=== PATIENT | male | born 1980 | race Caucasian/White ===

== ENCOUNTER 2016-04-22 14:42 | Emergency (ER) | payer OTHER ==
[2016-04-22 15:18] VITALS: BP 114/70; TEMP 99.8
[2016-04-22 15:58] VITALS: RESP 18
[2016-04-22] MEDS ORDERED: IBUPROFEN 600 MG TAB PO STA (16:03)
[2016-04-22] MEDS ORDERED: IPRATROPIUM 0.5 MG/2.5 ML NEBU INHALATION STA (16:03)
[2016-04-22] MEDS ORDERED: ALBUTEROL NEBULIZED 2.5 MG/3 ML INHALATION STA (16:03)
--- NOTE | 2016-04-22 16:07 | ED ---
URI HPI - General Chief Complaint: Upper Respiratory Infection Stated Complaint: Diarrhea Time Seen by Provider: 04/22/16 15:55 Source: patient, RN notes reviewed Mode of arrival: ambulatory Limitations: no limitations - History of Present Illness Initial Comments: 34-year-old male presents to the emergency department with a chief complaint of cough cold like symptoms. Patient admits to a history of COPD. Patient states he's had a cough and wheezing for the past 23 days. Patient does admit to low- grade fever. Patient states that he has not been smoking for about 2 days now. Patient states he doesn't have any sputum production. Patient states inhalers at home are not helping. Patient states that he was concerned due to the continued cough and body aches he thought that he should be evaluated. Patient states his daughter is sick with similar like symptoms. Patient denies any recent chest pain, back pain, abdominal pain, nausea vomiting, numbness or tingling, dysuria or hematuria, constipation or diarrhea, headaches or visual changes, or any other current symptoms. - Related Data Home Medications Medication Instructions Recorded Confirmed Albuterol Inhaler [Ventolin 2 puff INHALATION RT-Q6H PRN 03/12/15 04/22/16 Inhaler] Cetirizine HCl [Zyrtec] 10 mg PO DAILY 03/12/15 04/22/16 Sertraline HCl [Sertraline HCl] 100 mg PO DAILY 12/18/15 04/22/16 Previous Rx's Medication Instructions Recorded HYDROcodone/APAP 5-325MG [[place] 1 tab PO Q6HR PRN #15 tab 02/17/16 5-325] Albuterol Inhaler [Ventolin Hfa 1 - 2 puff INHALATION Q4-6H PRN #1 04/22/16 Inhaler] inhaler Azithromycin [Zithromax] 250 mg PO DIRECTED #6 tab 04/22/16 predniSONE 50 mg PO DAILY #5 tab 04/22/16 Allergies Allergy/AdvReac Type Severity Reaction Status Date / Time cyclobenzaprine HCl Allergy SEIZURE Verified 04/22/16 15:19 [From Flexeril] Review of Systems ROS Statement: Those systems with pertinent positive or pertinent negative responses have been documented in the HPI. ROS Other: All systems not noted in ROS Statement are negative. Past Medical History Past Medical History: COPD, Musculoskeletal Disorder Additional Past Medical History / Comment(s): BACK PAIN WITH VERVE DAMAGE, SOMETIMES UNABLE TO WALK., PROBLEMS WITH LEFT WRIST AND LEFT SHOULDER "DISCONNECTS" AT TIMES., ENVIRONMENTAL ALLERGIES, HEMORRHOIDS., HAVING BLOOD WITH EVERY BOWEL MOVEMENT. , NIGHTMARES. History of Any Multi-Drug Resistant Organisms: None Reported Additional Past Surgical History / Comment(s): LEFT TESTICLE SURGERY. Past Anesthesia/Blood Transfusion Reactions: No Reported Reaction, Motion Sickness Past Psychological History: ADD/ADHD, Bipolar, Depression Smoking Status: Heavy tobacco smoker Past Alcohol Use History: None Reported Additional Past Alcohol Use History / Comment(s): SMOKES 1 PPD. STARTED SMOKING AGE 10. Past Drug Use History: None Reported - Past Family History Mother Family Medical History: No Reported History General Exam - General Exam Comments Initial Comments: General exam: Alert, active, comfortable in no apparent distress Head: Normocephalic Eyes: Normal reaction of pupils, equal size, normal range of extraocular motion Ears: normal external ear canals, pink tympanic membranes with normal cone of light Nose: clear with pink turbinates Throat: no erythema or exudates with normal sized tonsils Neck: no masses, no nuchal rigidity Chest: no chest wall deformity Lungs: equal air entry with no crackles, patient does have diffuse wheeze CVS: S1 and S2 normal with no audible mumurs, regular rhythm Abdomen: no hepatosplenomegaly, normal bowel sounds, no guarding or rigidity Spine: no scoliosis or deformity Skin: no rashes Neurological: No focal deficits, tone is normal in all 4 extremities Limitations: no limitations Course Vital Signs 04/22/16 04/22/16 04/22/16 15:16 15:56 16:30 Temperature 99.8 F H Pulse Rate 89 92 Respiratory 20 18 Rate Blood Pressure 114/70 O2 Sat by Pulse 98 Oximetry 04/22/16 16:50 Temperature Pulse Rate 88 Respiratory Rate Blood Pressure O2 Sat by Pulse Oximetry Medical Decision Making - Medical Decision Making 35-year-old male presents to emergency Department chief complaint of cough and shortness of breath. Patient does have a history of COPD and is still currently smoking. At this time patient's chest x-ray and influenza are negative for acute process. Sensation appears to be suffering from a bronchitis. This and will start him on steroids and azithromycin due to his COPD history and history of smoking. We discussed continuing the inhalers. We discussed return comparison follow-up. Patient stated that he understood and all his questions have been answered. He will be discharged. - Lab Data Lab Results 04/22/16 Range/Units 16:20 Influenza Type A RNA Not Detected (Not Detectd) Influenza Type B (PCR) Not Detected (Not Detectd) - Radiology Data Radiology results: report reviewed, image reviewed Disposition Clinical Impression: Acute bronchitis, COPD exacerbation Disposition: HOME SELF-CARE Condition: Stable Instructions: COPD (Chronic Obstructive Pulmonary Disease) (ED), Acute Bronchitis (ED) Additional Instructions: Please use medication as discussed. Please follow up with family doctor if symptoms have not improved over the next two days. Please return to the emergency room if your symptoms increase or worsen or for any other concerns. Prescriptions: Albuterol Inhaler [Ventolin Hfa Inhaler] 1 - 2 puff INHALATION Q4-6H PRN #1 inhaler PRN Reason: Cough Azithromycin [Zithromax] 250 mg PO DIRECTED #6 tab predniSONE 50 mg PO DAILY #5 tab Referrals: Ryan East MD [Primary Care Provider] - 1-2 days Time of Disposition: 17:30
[2016-04-22 16:51] VITALS: PULSE 88
--- NOTE | 2016-04-22 17:05 | XR ---
EXAMINATION TYPE: XR chest 2V DATE OF EXAM: 04/22/2016 4:58 PM COMPARISON: 02/29/2016 INDICATION: Cough TECHNIQUE: Frontal and lateral views of the chest are obtained. FINDINGS: The heart size is normal. The pulmonary vasculature is normal. The lungs are clear. IMPRESSION: 1. No acute pulmonary process.
== END 2016-04-22 17:10 | disposition home or self-care (01) ==
LOC: EC 14:42
DX: J44.0 Chronic obstructive pulmonary disease with (acute) lower respiratory infection (principal); J20.9 Acute bronchitis, unspecified; J44.1 Chronic obstructive pulmonary disease with (acute) exacerbation; F32.9 Major depressive disorder, single episode, unspecified; Z88.5 Allergy status to narcotic agent; F17.200 Nicotine dependence, unspecified, uncomplicated; Z79.899 Other long term (current) drug therapy
CPT/HCPCS: 71020; 87502; 94640; 99283

== ENCOUNTER 2016-07-02 15:01 | Emergency (ER) | payer OTHER ==
[2016-07-02 15:08] VITALS: BP 116/78; PULSE 80; RESP 18; TEMP 97.7
--- NOTE | 2016-07-02 15:50 | ED ---
General Adult HPI - General Chief complaint: Back Pain/Injury Stated complaint: Back Pain Time Seen by Provider: 07/02/16 15:50 Source: patient, RN notes reviewed Mode of arrival: ambulatory - History of Present Illness Initial comments: This 35-year-old male presents with lower back pain and tailbone pain after a fall 2 days ago. Patient states his dog pulled him causing him to fall backwards onto his tailbone. Patient states he has been taking Motrin 800s but this has not helped the pain. Patient reports that he has had no change in bladder function but reports one episode where he lost control of his bowels since the fall but this has not reoccurred. Patient states this episode of loss of bowels was caused by diarrhea, and patient has had normal bowel movements with good control ever since.Patient denies any numbness or tingling of the saddle area, patient denies any numbness/weakness or tingling of bilateral lower or upper extremities. Patient denies any radicular pain. Patient states he is able to ambulate without difficulty. Patient denies any recent fever, chills, shortness breath, chest pain, abdominal pain, nausea/ vomiting/diarrhea, hematuria, headache, or visual changes, or any other complaints. - Related Data Home Medications Medication Instructions Recorded Confirmed Albuterol Inhaler [Ventolin 2 puff INHALATION RT-Q6H PRN 03/12/15 07/02/16 Inhaler] Cetirizine HCl [Zyrtec] 10 mg PO DAILY 03/12/15 07/02/16 Sertraline HCl [Sertraline HCl] 100 mg PO DAILY 12/18/15 07/02/16 Previous Rx's Medication Instructions Recorded HYDROcodone/APAP 5-325MG [[place] 1 tab PO Q6HR PRN #15 tab 02/17/16 5-325] Albuterol Inhaler [Ventolin Hfa 1 - 2 puff INHALATION Q4-6H PRN #1 04/22/16 Inhaler] inhaler Azithromycin [Zithromax] 250 mg PO DIRECTED #6 tab 04/22/16 predniSONE 50 mg PO DAILY #5 tab 04/22/16 traMADol HCL [Ultram] 50 mg PO Q6HR #12 tab 07/02/16 Allergies Allergy/AdvReac Type Severity Reaction Status Date / Time cyclobenzaprine HCl Allergy SEIZURE Verified 07/02/16 15:08 [From Flexeril] Review of Systems ROS Statement: Those systems with pertinent positive or pertinent negative responses have been documented in the HPI. ROS Other: All systems not noted in ROS Statement are negative. Past Medical History Past Medical History: COPD, Musculoskeletal Disorder Additional Past Medical History / Comment(s): BACK PAIN WITH NERVE DAMAGE, SOMETIMES UNABLE TO WALK., PROBLEMS WITH LEFT WRIST AND LEFT SHOULDER "DISCONNECTS" AT TIMES., ENVIRONMENTAL ALLERGIES, HEMORRHOIDS., HAVING BLOOD WITH EVERY BOWEL MOVEMENT. , NIGHTMARES. History of Any Multi-Drug Resistant Organisms: None Reported Past Surgical History: No Surgical Hx Reported Additional Past Surgical History / Comment(s): LEFT TESTICLE SURGERY. Past Anesthesia/Blood Transfusion Reactions: No Reported Reaction, Motion Sickness Past Psychological History: ADD/ADHD, Bipolar, Depression Smoking Status: Heavy tobacco smoker Past Alcohol Use History: None Reported Additional Past Alcohol Use History / Comment(s): SMOKES 1 PPD. STARTED SMOKING AGE 10. Past Drug Use History: None Reported - Past Family History Mother Family Medical History: No Reported History General Exam - General Exam Comments Initial Comments: General: The patient is awake and alert, in no distress, and does not appear acutely ill. Neck: The neck is supple, there is no tenderness or JVD. Cardiovascular: There is a regular rate and rhythm. No murmur, rub or gallop is appreciated. Respiratory: Lungs are clear to auscultation, respirations are non-labored, breath sounds are equal. No wheezes, stridor, rales, or rhonchi. Musculoskeletal: Patient is tender to palpation over the lumbar spine and sacrum area. There is no erythema, swelling or ecchymosis. Patient has strength 5/5, full range of motion and sensation intact. Posterior tibial pulses 2+ bilaterally, radial pulses 2+ bilaterally. Patient is ambulatory in the EC. Rectal: Normal rectal tone and no saddle anesthesia with palpation. Neurological: A&O x 3. CN II-XII intact, There are no obvious motor or sensory deficits. Coordination appears grossly intact. Speech is normal. Skin: Skin is warm and dry and no rashes or lesions are noted. Psychiatric: Normal mood and affect. Course Vital Signs 07/02/16 15:02 Temperature 97.7 F Pulse Rate 80 Respiratory 18 Rate Blood Pressure 116/78 O2 Sat by Pulse 98 Oximetry Medical Decision Making - Medical Decision Making This is a 35-year-old male who presents with lower back pain 2 days after a fall. On physical exam patient is neurologically intact. Patient has strength 5/5 of bilateral upper and lower extremities. Patient has normal rectal tone and full sensation to the saddle area. Patient has full sensation and full range of motion. Patient is ambulatory in the EC. There is mild tenderness to palpation of the lumbar spine and sacrum. An x-ray of the lumbar spine and an x -ray of the sacrum was done and reviewed showing: #1 lumbar spine: No vertebral compression collapse or malalignment. #2 sacrococcyx: No displaced or angulated tailbone fracture seen. Referred by Dr. Gant. Patient was given Toradol in the EC with some relief of pain. I discussed the results with patient. I discussed Tylenol and Motrin for pain. I discussed tramadol for breakthrough pain. I discussed ice and heating pads to the area. I discussed return parameters. Discussed that patient should follow up with PCP in one to 2 days or return to the EC for any worsening symptoms or for any further concerns. Patient was receptive to this plan and patient will be discharged home. Disposition Clinical Impression: Coccygeal pain, Low back pain Disposition: HOME SELF-CARE Condition: Good Instructions: Acute Low Back Pain (ED) Additional Instructions: Please continue Tylenol and Motrin for pain. Please use tramadol for breakthrough pain. May use ice or heating pads to the area. Please use medication as discussed. Please follow-up with family doctor in the next 2 days of symptoms have not improved. Please return to emergency room if the symptoms increase or worsen or for any other concerns. Prescriptions: traMADol HCL [Ultram] 50 mg PO Q6HR #12 tab Referrals: Ryan East MD [Primary Care Provider] - 1-2 days Time of Disposition: 16:22
[2016-07-02] MEDS ORDERED: ORPHENADRINE 30 MG/ML 2 ML VIAL IM STA (15:54)
[2016-07-02] MEDS ORDERED: KETOROLAC 60 MG/2 ML VIAL IM STA (15:54)
--- NOTE | 2016-07-02 16:11 | XR ---
EXAMINATION TYPE: 3 views lumbar spine. 3 views sacrum and coccyx DATE OF EXAM: 07/02/2016 4:03 PM COMPARISON: Lumbar spine 10/23/2013 HISTORY: 35-year-old male with low back pain and tailbone pain for 2 days after fall FINDINGS: Lumbar spine: 5 lumbar type vertebral bodies. Vertebral body heights are preserved and alignment is maintained. Sug gestion of mild facet degenerative change in the lower lumbar spine. Sacrum and coccyx: SI joints appear symmetric and intact. Small delineation to the arcuate lines of the sacrum. No displ aced or angulated sacral or coccygeal fracture seen. IMPRESSION: 1. Lumbar spine: No vertebral compression collapse or malalignment. 2. Sacrum coccyx: No displaced or angulated tailbone fracture seen.
== END 2016-07-02 16:42 | disposition home or self-care (01) ==
LOC: EC 15:01
DX: M54.5 Low back pain (principal); M53.3 Sacrococcygeal disorders, not elsewhere classified; F31.9 Bipolar disorder, unspecified; F90.9 Attention-deficit hyperactivity disorder, unspecified type; F17.200 Nicotine dependence, unspecified, uncomplicated; Z79.899 Other long term (current) drug therapy; Z88.8 Allergy status to other drugs, medicaments and biological substances; W19.XXXA Unspecified fall, initial encounter
CPT/HCPCS: 72100; 72220; 99283; 96372; J1885

== ENCOUNTER 2016-08-30 14:46 | Emergency (ER) | payer OTHER ==
[2016-08-30 14:52] VITALS: RESP 16
[2016-08-30] MEDS ORDERED: LIDOCAINE VISCOUS 2% 15 ML CUP MUCOUS MEM ONE (16:25)
--- NOTE | 2016-08-30 16:31 | ED ---
ENT HPI - General Chief complaint: ENT Stated complaint: Sore Throat Time Seen by Provider: 08/30/16 16:07 Source: patient, RN notes reviewed Mode of arrival: ambulatory Limitations: no limitations - History of Present Illness Initial comments: Patient is a 36-year-old male presents emergency room for evaluation of throat pain. Patient states throat pain began on Wednesday. patient states been taking [id number] cough medicine and throat lozenges with no relief of symptoms. Patient states he has been gargling with salt water. Patient states he is also experiencing bilateral ear pain. Patient states he has a cough but that is chronic for him since he has COPD. Patient denies worsening cough or shortness of breath. Patient denies fevers or chills. Patient denies headache or dizziness. Patient denies chest pain. Patient denies abdominal pain. Patient denies nausea or vomiting. - Related Data Home Medications Medication Instructions Recorded Confirmed Albuterol Inhaler [Ventolin 2 puff INHALATION RT-Q6H PRN 03/12/15 08/30/16 Inhaler] Cetirizine HCl [Zyrtec] 10 mg PO DAILY 03/12/15 08/30/16 Sertraline HCl [Sertraline HCl] 100 mg PO DAILY 12/18/15 08/30/16 Acetaminophen Tab [Tylenol Tab] 1,000 mg PO Q6HR PRN 08/30/16 08/30/16 Albuterol Nebulized [Ventolin 2.5 mg INHALATION RT-Q6H PRN 08/30/16 08/30/16 Nebulized] Tiotropium [place] [Spiriva] 1 cap INHALATION RT-DAILY 08/30/16 08/30/16 Unknown Inhaler 1 puff INHALATION RT-BID 08/30/16 08/30/16 Previous Rx's Medication Instructions Recorded traMADol HCL [Ultram] 50 mg PO Q6HR #12 tab 07/02/16 Azithromycin [Zithromax Z-pack] 250 mg PO DIRECTED #6 tab 08/30/16 Allergies Allergy/AdvReac Type Severity Reaction Status Date / Time cyclobenzaprine HCl Allergy SEIZURE Verified 08/30/16 16:12 [From Flexeril] Review of Systems ROS Statement: Those systems with pertinent positive or pertinent negative responses have been documented in the HPI. ROS Other: All systems not noted in ROS Statement are negative. Past Medical History Past Medical History: COPD, Musculoskeletal Disorder Additional Past Medical History / Comment(s): BACK PAIN WITH NERVE DAMAGE, SOMETIMES UNABLE TO WALK., PROBLEMS WITH LEFT WRIST AND LEFT SHOULDER "DISCONNECTS" AT TIMES., ENVIRONMENTAL ALLERGIES, HEMORRHOIDS., HAVING BLOOD WITH EVERY BOWEL MOVEMENT. , NIGHTMARES. History of Any Multi-Drug Resistant Organisms: None Reported Past Surgical History: No Surgical Hx Reported Additional Past Surgical History / Comment(s): LEFT TESTICLE SURGERY. Past Anesthesia/Blood Transfusion Reactions: No Reported Reaction, Motion Sickness Past Psychological History: ADD/ADHD, Bipolar, Depression Smoking Status: Heavy tobacco smoker Past Alcohol Use History: None Reported Additional Past Alcohol Use History / Comment(s): SMOKES 1 PPD. STARTED SMOKING AGE 10. Past Drug Use History: None Reported - Past Family History Mother Family Medical History: No Reported History General Exam - General Exam Comments Initial Comments: sitting in exam room in no acute distress. Limitations: no limitations General appearance: alert, in no apparent distress Head exam: Present: atraumatic, normocephalic, normal inspection Eye exam: Present: normal appearance ENT exam: Present: normal exam Expanded Mouth exam: Present: normal external inspection Teeth exam: Present: normal inspection Throat exam: normal inspection, tonsillar erythema Neck exam: Present: normal inspection, tenderness (Tenderness on palpating over bilateral anterior cervical lymph nodes), full ROM. Absent: lymphadenopathy Respiratory exam: Present: normal lung sounds bilaterally. Absent: respiratory distress Cardiovascular Exam: Present: regular rate, normal rhythm, normal heart sounds Extremities exam: Present: normal inspection Back exam: Present: normal inspection Neurological exam: Present: alert, oriented X3, CN II-XII intact, normal gait Psychiatric exam: Present: normal affect, normal mood Skin exam: Present: warm, dry, intact, normal color. Absent: rash Course Vital Signs 08/30/16 08/30/16 14:49 18:07 Temperature 99.5 F 98.4 F Pulse Rate 92 98 Respiratory 16 16 Rate Blood Pressure 127/80 138/87 O2 Sat by Pulse 97 98 Oximetry Medical Decision Making - Medical Decision Making patient is a 36-year-old male presents to the emergency room for evaluation of throat pain. Patient also complaining of pain over bilateral anterior cervical lymph nodes. Rapid strep negative. Heterophile negative. Patient's throat pain most likely viral. Strep culture pending. Advised patient to begin taking antibiotics if he does receive a phone call that the strep culture came back positive. Patient states he understands everything that was discussed with him. Return parameters discussed. Case discussed with Dr. Guadarrama. - Lab Data Result diagrams: 08/30/16 17:00 Lab Results 08/30/16 08/30/16 08/30/16 Range/Units 16:08 17:00 17:00 WBC 14.0 H (3.8-10.6) k/uL RBC 5.03 (4.30-5.90) m/uL Hgb 13.8 (13.0-17.5) gm/dL Hct 42.7 (39.0-53.0) % MCV 84.8 (80.0-100.0) fL MCH 27.5 (25.0-35.0) pg MCHC 32.4 (31.0-37.0) g/dL RDW 13.8 (11.5-15.5) % Plt Count 350 (150-450) k/uL Neutrophils % 63 % Lymphocytes % 26 % Monocytes % 6 % Eosinophils % 2 % Basophils % 1 % Neutrophils # 8.8 H (1.3-7.7) k/uL Lymphocytes # 3.6 (1.0-4.8) k/uL Monocytes # 0.9 (0-1.0) k/uL Eosinophils # 0.3 (0-0.7) k/uL Basophils # 0.1 (0-0.2) k/uL Heterophile Antibody Negative (Negative) Group A Strep Rapid Negative (Negative) Disposition Clinical Impression: Acute viral pharyngitis Disposition: HOME SELF-CARE Condition: Good Instructions: Pharyngitis (ED) Additional Instructions: Tylenol or Motrin as needed for pain. Salt water gargles. Please follow up with primary care provider in 1-2 days. If you receive a call in a few days that strep culture is positive, begin taking antibiotics. If any new symptom arises or symptoms worsen, return to ER as soon as possible. Prescriptions: Azithromycin [Zithromax Z-pack] 250 mg PO DIRECTED #6 tab Referrals: Ryan East MD [Primary Care Provider] - 1-2 days Time of Disposition: 17:57
[2016-08-30 17:16] LABS: Basophils # (A) 0.1 k/uL (0-0.2); Basophils % (A) 1 %; CH 27.5; CHCM 32.6; Eosinophils # (A) 0.3 k/uL (0-0.7); Eosinophils % (A) 2 %; HCT 42.7 % (39.0-53.0); HDW 2.74; HGB 13.8 gm/dL (13.0-17.5); Luc # (Auto) 0.33; Luc % (Auto) 2; Lymphocytes # (A) 3.6 k/uL (1.0-4.8); Lymphocytes % (A) 26 %; MCH 27.5 pg (25.0-35.0); MCHC 32.4 g/dL (31.0-37.0); MCV 84.8 fL (80.0-100.0); Mean Platelet Volume 6.6; Monocytes # (A) 0.9 k/uL (0-1.0); Monocytes % (A) 6 %; Neutrophils # (A) 8.8 k/uL (1.3-7.7); Neutrophils % (A) 63 %; RBC 5.03 m/uL (4.30-5.90); RDW 13.8 % (11.5-15.5); WBC (Perox) 13.83
[2016-08-30 18:08] VITALS: BP 138/87; PULSE 98; TEMP 98.4
== END 2016-08-30 18:08 | disposition home or self-care (01) ==
LOC: EC 14:46
DX: J02.8 Acute pharyngitis due to other specified organisms (principal); H92.03 Otalgia, bilateral; J44.9 Chronic obstructive pulmonary disease, unspecified; F17.200 Nicotine dependence, unspecified, uncomplicated; Z79.899 Other long term (current) drug therapy; Z88.8 Allergy status to other drugs, medicaments and biological substances; Z91.048 Other nonmedicinal substance allergy status
CPT/HCPCS: 36415; 85025; 86308; 87081; 87430; 99283

== ENCOUNTER 2018-04-17 14:59 | Emergency (ER) | payer OTHER ==
[2018-04-17 15:03] VITALS: BP 153/93; PULSE 74; RESP 18; TEMP 98
[2018-04-17] MEDS ORDERED: KETOROLAC 60 MG/2 ML VIAL IM STA (15:36)
--- NOTE | 2018-04-17 15:53 | XR ---
EXAMINATION TYPE: XR hand complete RT DATE OF EXAM: 04/17/2018 COMPARISON: NONE HISTORY: Pain. Third digit injury TECHNIQUE: 3 views FINDINGS: I see no fracture nor dislocation. Metacarpals are intact. Joint spaces appear normal. IMPRESSION: Negative right hand exam.
[2018-04-17] MEDS ORDERED: DIPH,PERTUS(ACELL)TETVAC-LF 0.5 ML VIAL IM ONE (16:12)
[2018-04-17] MEDS ORDERED: ACET/COD 300 MG/30 MG STARTER PACK 6 TAB BTL PO STA (16:32)
--- NOTE | 2018-04-17 16:43 | ED ---
General Adult HPI - General Chief complaint: Extremity Injury, Upper Stated complaint: Back pain Source: patient, RN notes reviewed, old records reviewed Mode of arrival: ambulatory Limitations: no limitations - History of Present Illness Initial comments: 37-year-old male patient with no pertinent past medical history presents to ED with 2 complaints. Patient primary complaint is pain in the interphalangeal joint of his third digit on his right hand. Patient reported that he was at work and is something to pry off a metal cover with a piece of rebar. Patient reports that during this process the rebar bent around his third digit pinching it, causing pain. Patient continues to have a moderate amount of pain on his joint. Patient has a full range of motion of digits and hand. Patient has secondary complaint of chronic lumbar back pain. Patient states that he has experienced this for over 10 years. Patient denies any recent falls or trauma. Patient denies any new onset lower extremity paresthesias, weakness, loss of bowel or bladder control. Pt states that pain does not radiate and is worse with exertion, not painful with rest. Patient states that he currently does not have a PCP. She follows up with this. Patient denies IV drug use, nausea vomiting diarrhea, fever chills, chest pain, shortness of breath. Systemic: Pt denies fatigue, myalgia, fever/chills, rash. Pt denies weakness, night sweats, weight loss. Neuro: Pt denies headache, visual disturbances, syncope or pre-syncope. HEENT: Pt denies ocular discharge or irritation, otalgia, rhinorrhea, pharyngitis or notable lymphadenopathy. Cardiopulmonary: Pt denies chest pain, SOB, heart palpitations, dyspnea on exertion. Abdominal/GI: Pt denies abdominal pain, n/v/d. : Pt denies dysuria, burning w/ urination, frequency/urgency. Denies new onset urinary or bowel incontinence. MSK: Pt denies myalgia, loss of strength or function in extremities. Neuro: Pt denies new onset weakness, paresthesias. - Related Data Home Medications Medication Instructions Recorded Confirmed Albuterol Inhaler [Ventolin 2 puff INHALATION RT-Q6H PRN 03/12/15 08/30/16 Inhaler] Cetirizine HCl [Zyrtec] 10 mg PO DAILY 03/12/15 08/30/16 Sertraline HCl 100 mg PO DAILY 12/18/15 08/30/16 Acetaminophen Tab [Tylenol Tab] 1,000 mg PO Q6HR PRN 08/30/16 08/30/16 Albuterol Nebulized [Ventolin 2.5 mg INHALATION RT-Q6H PRN 08/30/16 08/30/16 Nebulized] Tiotropium Joshua [Spiriva] 1 cap INHALATION RT-DAILY 08/30/16 08/30/16 Unknown Inhaler 1 puff INHALATION RT-BID 08/30/16 08/30/16 Previous Rx's Medication Instructions Recorded traMADol HCL [Ultram] 50 mg PO Q6HR #12 tab 07/02/16 Azithromycin [Zithromax Z-pack] 250 mg PO DIRECTED #6 tab 08/30/16 Allergies Allergy/AdvReac Type Severity Reaction Status Date / Time cyclobenzaprine HCl Allergy SEIZURE Verified 04/17/18 15:03 [From Flexeril] Review of Systems ROS Statement: Those systems with pertinent positive or pertinent negative responses have been documented in the HPI. ROS Other: All systems not noted in ROS Statement are negative. Past Medical History Past Medical History: COPD, Musculoskeletal Disorder Additional Past Medical History / Comment(s): BACK PAIN WITH NERVE DAMAGE, SOMETIMES UNABLE TO WALK., PROBLEMS WITH LEFT WRIST AND LEFT SHOULDER "DISCONNECTS" AT TIMES., ENVIRONMENTAL ALLERGIES, HEMORRHOIDS., HAVING BLOOD WITH EVERY BOWEL MOVEMENT. , NIGHTMARES. History of Any Multi-Drug Resistant Organisms: None Reported Past Surgical History: No Surgical Hx Reported Additional Past Surgical History / Comment(s): LEFT TESTICLE SURGERY. Varicose vein surgery Past Anesthesia/Blood Transfusion Reactions: No Reported Reaction, Motion Sickness Past Psychological History: ADD/ADHD, Bipolar, Depression Smoking Status: Heavy tobacco smoker Past Alcohol Use History: Occasional Past Drug Use History: None Reported - Past Family History Mother Family Medical History: No Reported History General Exam - General Exam Comments Initial Comments: Constitutional: NAD, AOX3, Pt has pleasant affect. HEENT: NC/AT, trachea midline, neck supple, no lymphadenopathy. Posterior pharynx non erythematous, without exudates. External ears appear normal, without discharge. Mucous membranes moist. Eyes PERRLA, EOM intact. There is no scleral icterus. No pallor noted. Cardiopulmonary: RRR, no murmurs, rubs or gallops, no JVD noted. Lungs CTAB in anterior and posterior rose. No peripheral edema. Abdominal exam: Abdomen soft and non-distended. Abdomen non-tender to palpation in all 4 quadrants. Bowel sounds active in LLQ. No hepatosplenomegaly. No ecchymosis Neuro: CN II-XII grossly intact. No nuchal rigidity. MSK: Mild amount of tenderness to palpation of third ITP joint on right hand. Pt has full active ROM of digit. No ecchymosis. Sensation intact, capillary refill <2 seconds. Psoas and quadriceps stregneth 5/5 bilaterally. Pt ambulatory , heel to toe walking intact. Patellar and achillies reflexes 2/4. No posterior calf tenderness bilaterally, homans sign negative bilaterally. Posterior tibialis and radial pulse +2 bilaterally. Sensation intact in upper and lower extremities. Full active ROM in upper and lower extremities, 5/5 stregnth. Limitations: no limitations Course Vital Signs 04/17/18 15:01 Temperature 98.0 F Pulse Rate 74 Respiratory 18 Rate Blood Pressure 153/93 O2 Sat by Pulse 98 Oximetry Medical Decision Making - Medical Decision Making 37-year-old male patient with no pertinent past medical history presents to ED with 2 complaints. Patient primary complaint is pain in the interphalangeal joint of his third digit on his right hand. Patient reported that he was at work and is something to pry off a metal cover with a piece of rebar. Patient reports that during this process the rebar bent around his third digit pinching it, causing pain. Patient has secondary complaint of chronic lumbar back pain. Patient states that he has experienced this for over 10 years. Patient denies any recent falls or trauma. Physical exam displayed Mild amount of tenderness to palpation of third ITP joint on right hand. Pt has full active ROM of digit. Sensation intact, capillary refill <2 seconds. Psoas and quadriceps stregneth 5/ 5 bilaterally. Pt ambulatory, heel to toe walking intact. Patellar and achillies reflexes 2/4. Plain film did not display any acute osseous abnormality or pathology. Patient diagnosed with contusion of hand, and chronic lumbar back pain. Patient pain improved with Toradol administration. Pt given referral for orthopedics for continued evaluation. Pt given referral for PCP to establish care. Pt tetanus updated, pt rx tylenol 3 starter pack to use as needed for pain in hand/back at home. Pt to return to ED if new s/sx develops or if condition worsens in anyway. Case discussed in depth with Dr. Bethea. Disposition Clinical Impression: Contusion of finger of right hand, Lumbar back pain, Chronic back pain Disposition: HOME SELF-CARE Condition: Good Instructions: Chronic Back Pain (ED), Arthralgia (ED), Hand Sprain (ED) Additional Instructions: Patient to adhere to previously discussed treatment plan and will take medication(s) as directed. Patient to follow up with PCP in 1-2 days. Patient to return to ED if symptoms do not improve. Is patient prescribed a controlled substance at d/c from ED?: No Referrals: None,Stated [Primary Care Provider] - [facility] days [facility] - 1-2 days Jones Phillip MD [STAFF PHYSICIAN] - 1-2 days Time of Disposition: 16:45
== END 2018-04-17 16:56 | disposition home or self-care (01) ==
LOC: EC 14:59
DX: S60.031A Contusion of right middle finger without damage to nail, initial encounter (principal); M54.5 Low back pain; G89.29 Other chronic pain; J44.9 Chronic obstructive pulmonary disease, unspecified; F31.9 Bipolar disorder, unspecified; F90.9 Attention-deficit hyperactivity disorder, unspecified type; F17.200 Nicotine dependence, unspecified, uncomplicated; Z23 Encounter for immunization; Z79.899 Other long term (current) drug therapy; Z88.8 Allergy status to other drugs, medicaments and biological substances; X58.XXXA Exposure to other specified factors, initial encounter
CPT/HCPCS: 73130; 90715; 99284; 96372; 90471; J1885